=== PATIENT | female | born 1950 | race Caucasian/White ===

== ENCOUNTER 2018-05-20 11:01 | Outpatient (CLI) | payer OTHER | END 2018-05-20 11:03 | disposition home or self-care (01) | LOC: SONOGRAMA 11:01 | DX: E04.1 Nontoxic single thyroid nodule (principal) ==

== ENCOUNTER 2019-05-06 07:44 | Outpatient (CLI) | payer OTHER | END 2019-05-06 07:54 | disposition home or self-care (01) | LOC: NUCLEAR 07:44 | DX: I11.9 Hypertensive heart disease without heart failure (principal); J45.998 Other asthma | CPT/HCPCS: 78452; 93017; A9500; J0153 ==

== ENCOUNTER 2022-11-06 09:21 | Outpatient (CLI) | payer OTHER | END 2022-11-06 09:23 | disposition home or self-care (01) | LOC: SONOGRAMA 09:21 | PROVIDERS: ATTEND Pathology Anatomic Pathology & Clinical Pathology | DX: E04.1 Nontoxic single thyroid nodule (principal) ==

== ENCOUNTER 2025-02-02 06:48 | Day surgery (SDC) | payer OTHER ==
[2025-01-27 08:31] LABS: HEMATOCRIT 41.2 % (36.0-45.00); HEMOGLOBIN 13.8 g/dL (12.0-15.00); MEAN CELL VOLUME 90.3 fL (80.00-100.00); MEAN CORPUSCULAR HEMOGLOBIN 30.2 pg (27.00-32.0); MEAN CORPUSCULAR HGB CONC 33.5 g/dl (32.0-36.0); PLATELET COUNT 245 K/uL (150-450); RED BLOOD COUNT 4.56 M/uL (4.00-6.00); RED CELL DISTRIBUTION WIDTH 13.7 % (11.5-14.5)
[2025-01-27 09:14] LABS: INR 1.13; PARTIAL THROMBOPLASTIN TIME 31.9 SECONDS (22.0-34.0); PROTHROMBIN TIME 12.2 SECONDS (9.0-11.5)
[2025-01-27 09:16] LABS: ALBUMIN 4.3 gm/dL (3.4-5.0); BILIRUBIN TOTAL 0.39 mg/dL (0.3-1.2); CALCIUM 9.3 mg/dL (8.5-10.1); CREATININE SERUM 0.43 mg/dL (0.55-1.02); GFR 143.54; GLOBULINA 2.9 G/DL (2.4-3.5); POTASSIUM 4.55 mEq/L (3.5-5.1); TOTAL PROTEIN 7.2 gm/dL (6.4-8.2)
[2025-01-27 09:51] VITALS: BP 137/76
[~2025-02-02 06:48] MED LIST: ACEBUTOLOL HCL200 MG PO; ACIPHEX20 MG PO; ALTACE2.5 MG PO; ATORVASTATIN CA10 MG PO; BAYER THERAPY325 MG PO; LEVOTHYROXINE25 MCG PO; PEPCID40 MG PO; TRIMETHOPRIM100 MG PO
[2025-02-02] MEDS ORDERED: MIDAZOLAM HCL 2 MG/2 ML VIAL IV ONE (15:15)
[2025-02-02] MEDS ORDERED: ONDANSETRON HCL 2 MG/ML VIAL IV ONE (15:15)
[2025-02-02] MEDS ORDERED: fentaNYL CITRATE 50 MCG/ML AMPUL IV PUSH ONE (15:15)
[2025-02-02] MEDS ORDERED: DIPHENHYDRAMINE HCL 50 MG/ML VIAL 1ML IV ONE (15:15)
== END 2025-02-02 16:20 | disposition home or self-care (01) ==
LOC: AMB-ENDOS 06:48 → CIR.AMB 09:00 → AMB-ENDOS 16:20
PROVIDERS: ATTEND Internal Medicine
DX: K57.30 Diverticulosis of large intestine without perforation or abscess without bleeding (principal); R19.5 Other fecal abnormalities; Z91.013 Allergy to seafood; Z88.0 Allergy status to penicillin; Z91.041 Radiographic dye allergy status; Z88.2 Allergy status to sulfonamides